=== PATIENT | female | born 1950 | race Caucasian/White ===

== ENCOUNTER → 2020-06-29 | Outpatient (CLI) | payer MEDICARE, OTHER | LOC: LAB 15:02 | PROVIDERS: Physician Assistant Medical | DX: A04.72 Enterocolitis due to Clostridium difficile, not specified as recurrent (principal); D59.8 Other acquired hemolytic anemias; D61.818 Other pancytopenia; D68.61 Antiphospholipid syndrome | CPT/HCPCS: 36415; 80048 ==

== ENCOUNTER → 2020-07-18 | Outpatient (CLI) | payer MEDICARE, OTHER | LOC: LAB 12:37 | PROVIDERS: Family Medicine | DX: I12.9 Hypertensive chronic kidney disease with stage 1 through stage 4 chronic kidney disease, or unspecified chronic kidney disease (principal); N18.4 Chronic kidney disease, stage 4 (severe) | CPT/HCPCS: 36415; 80048 ==

== ENCOUNTER → 2020-09-12 | Outpatient (CLI) | payer MEDICARE, OTHER | LOC: LAB 08:41 | DX: N39.0 Urinary tract infection, site not specified (principal); Z79.899 Other long term (current) drug therapy; Z94.0 Kidney transplant status | CPT/HCPCS: 87077; 87086; 87186 ==

== ENCOUNTER 2020-10-14 15:43 | Emergency (ER) | payer MEDICARE, OTHER ==
[2020-10-14 16:59] LABS: HEMOGLOBIN 11.7 gm/dl (12.3-15.3); RED BLOOD COUNT 3.73 M/UL (4.00-5.10)
[2020-10-14 17:39] LABS: BUN/CREATININE RATIO 21 (0-10)
== END 2020-10-14 21:48 | disposition home or self-care (01) ==
LOC: ER1 15:43
DX: R07.9 Chest pain, unspecified (principal)
CPT/HCPCS: 71045; 71250; 80053; 81001; 82550; 82553; 83874; 84484; 85025; 85379; 85384; 85610; 85730; 87040; 93005; 99285

== ENCOUNTER → 2020-11-06 | Outpatient (CLI) | payer MEDICARE, OTHER | LOC: LAB 08:53 | DX: E11.9 Type 2 diabetes mellitus without complications (principal) | CPT/HCPCS: 36415; 83036 ==

== ENCOUNTER → 2021-01-30 | Outpatient (CLI) | payer MEDICARE ==
[2021-01-30 10:23] LABS: HEMOGLOBIN 11.5 gm/dl (12.3-15.3); RED BLOOD COUNT 3.81 M/UL (4.00-5.10); WHITE BLOOD COUNT 5.8 K/UL (4.5-11.0)
[2021-01-31 07:12] LABS: COMPLEMENT C3, SERUM 155 mg/dL (82-167); COMPLEMENT C4, SERUM 46 mg/dL (12-38); RHEUMATOID ARTHRITIS FACTOR <10.0 IU/mL (<14.0)
[2021-01-31 08:13] LABS: HCV AB <0.1 (0.0-0.9); HEP B CORE AB, TOT Negative (Negative)
[2021-01-31 14:14] LABS: TACROLIMUS BY IMMUNOASSAY 7.9 ng/mL (2.0-20.0)
== END ==
LOC: LAB 09:41
PROVIDERS: Internal Medicine
DX: Z11.59 Encounter for screening for other viral diseases (principal); M25.551 Pain in right hip; M25.552 Pain in left hip; D68.61 Antiphospholipid syndrome; R76.8 Other specified abnormal immunological findings in serum; I63.9 Cerebral infarction, unspecified; M25.50 Pain in unspecified joint; N18.9 Chronic kidney disease, unspecified; M19.90 Unspecified osteoarthritis, unspecified site; G72.9 Myopathy, unspecified; Z79.899 Other long term (current) drug therapy
CPT/HCPCS: 36415; 73522; 80053; 80197; 82550; 83520; 84439; 84443; 85025; 85652; 86140; 86160; 86200; 86431; 86704; 86803

== ENCOUNTER → 2021-04-09 | Outpatient (CLI) | payer MEDICARE, OTHER ==
[2021-04-09 10:56] LABS: HEMOGLOBIN 11.4 gm/dl (12.3-15.3); RED BLOOD COUNT 3.8 M/UL (4.00-5.10); WHITE BLOOD COUNT 3.6 K/UL (4.5-11.0)
== END ==
LOC: LAB 09:48
PROVIDERS: Internal Medicine
DX: Z48.22 Encounter for aftercare following kidney transplant (principal); Z79.899 Other long term (current) drug therapy; Z94.0 Kidney transplant status
CPT/HCPCS: 36415; 80069; 83735; 85025

== ENCOUNTER → 2021-05-02 | Outpatient (CLI) | payer MEDICARE, OTHER | LOC: OPSV 06:12 | DX: N39.0 Urinary tract infection, site not specified (principal) | CPT/HCPCS: 96365; J1335 ==

== ENCOUNTER → 2021-05-03 | Outpatient (CLI) | payer MEDICARE, OTHER ==
[~2021-05-03] VITALS: Ht 172.7 cm; Wt 75.3 kg
== END ==
LOC: OPSV 06:12
DX: N39.0 Urinary tract infection, site not specified (principal)
CPT/HCPCS: 96365; J1335

== ENCOUNTER → 2021-05-04 | Outpatient (CLI) | payer MEDICARE, OTHER ==
[~2021-05-04] VITALS: Ht 172.7 cm; Wt 75.3 kg
== END ==
LOC: OPSV 06:14
DX: N39.0 Urinary tract infection, site not specified (principal)
CPT/HCPCS: 96365; J1335

== ENCOUNTER → 2021-05-05 | Outpatient (CLI) | payer MEDICARE, OTHER ==
[~2021-05-05] VITALS: Ht 172.7 cm; Wt 75.3 kg
== END ==
LOC: OPSV 06:06
DX: N39.0 Urinary tract infection, site not specified (principal)
CPT/HCPCS: 96365; J1335

== ENCOUNTER → 2021-05-06 | Outpatient (CLI) | payer MEDICARE, OTHER | LOC: OPSV 06:11 | DX: N39.0 Urinary tract infection, site not specified (principal) | CPT/HCPCS: 96365; J1335 ==

== ENCOUNTER → 2021-05-31 | Outpatient (CLI) | payer MEDICARE, OTHER | LOC: EMI 10:04 | DX: H53.2 Diplopia (principal); Z86.73 Personal history of transient ischemic attack (TIA), and cerebral infarction without residual deficits | CPT/HCPCS: 70540; 70551 ==

== ENCOUNTER → 2021-09-18 | Outpatient (CLI) | payer MEDICARE, OTHER | LOC: KOH-I 08:32 | DX: M25.552 Pain in left hip (principal) | CPT/HCPCS: 73502 ==

== ENCOUNTER → 2021-10-03 | Outpatient (CLI) | payer MEDICARE, OTHER | LOC: KOH-I 08:43 | DX: M47.26 Other spondylosis with radiculopathy, lumbar region (principal) | CPT/HCPCS: 72100 ==

== ENCOUNTER → 2021-10-07 | Outpatient (CLI) | payer MEDICARE, OTHER | LOC: MRI 16:45 → EMI 16:45 → MRI 16:52 | DX: M51.16 Intervertebral disc disorders with radiculopathy, lumbar region (principal); M51.37 Other intervertebral disc degeneration, lumbosacral region | CPT/HCPCS: 72148 ==